=== PATIENT | male | born 1995 | race Two or more races ===

== ENCOUNTER 2017-08-09 06:06 | Emergency (ER) | payer BC ==
[~2017-08-09] VITALS: Ht 180.3 cm; Wt 79.4 kg
[~2017-08-09 06:06] MED LIST: METH18TA5
[2017-08-09 07:29] VITALS: BP 144/92
[2017-08-09 08:15] LABS: Basophils # (auto) 0.1 uL; Basophils % (auto) 1.2 % (0.0-2.0); Eosinophils # (auto) 0.3 uL; Eosinophils % (auto) 4.7 % (0.0-7.0); Hematocrit 47.7 % (41.0-53.0); Hemoglobin 16.4 g/dL (13.5-17.5); Lymphocytes # (auto) 2.4 uL; Lymphocytes % (auto) 34.6 % (10.0-50.0); Mean Corpuscular Hemoglobin 31.2 pg (28.0-32.0); Mean Corpuscular Hgb Conc. 34.4 g/dL (32.0-36.0); Mean Corpuscular Volume 90.7 fL (80.0-100.0); Monocytes # (auto) 0.5 uL; Monocytes % (auto) 7.6 % (0.0-12.0); Neutrophils # (auto) 3.6 uL; Neutrophils % (auto) 51.9 % (37.0-80.0); Nucleated Red Blood Cells % 0.1 %; Platelet Count (auto) 202 10^3/uL (140-450); Red Blood Cells 5.26 10^6/uL (4.5-5.90); White Blood Cell 6.9 10^3/uL (4.4-10.8)
[2017-08-09] MEDS ORDERED: KETOROLAC TROMETH 60MG/2ML VIAL IM ONE (08:30)
[2017-08-09 08:48] LABS: Alanine Aminotransferase 28 U/L (16-61); Albumin 4.3 g/dL (3.4-5.0); Alkaline Phosphatase 83 U/L (45-117); Anion Gap 7 (5-15); Aspartate Aminotransferase 12 U/L (15-37); BUN/Creatinine Ratio 11.5; Bilirubin, Total 0.4 mg/dL (0.2-1.0); Blood Urea Nitrogen 11 mg/dL (7-18); Calcium 9.1 mg/dL (8.5-10.1); Carbon Dioxide 28 mmol/L (21-32); Chloride 104 mmol/L (98-107); GFR African American 124 mL/min; GFR Non-African American 102 mL/min; Glucose 101 mg/dL (74-106); Magnesium 2.5 mg/dL (1.6-2.6); Potassium 4.8 mmol/L (3.5-5.1); Sodium 139 mmol/L (136-145); Total Protein 7.9 g/dL (6.4-8.2)
== END 2017-08-09 09:15 | disposition home or self-care (01) ==
LOC: ER 06:06
DX: R07.89 Other chest pain (principal); Z79.899 Other long term (current) drug therapy
CPT/HCPCS: 36415; 71045; 80053; 83735; 84443; 84484; 85025; 93005; 96372; 99285; J1885

== ENCOUNTER 2021-09-25 17:47 | Emergency (ER) | payer BC ==
[~2021-09-25] VITALS: Ht 177.8 cm; Wt 86.2 kg
[2021-09-25 17:57] VITALS: BP 96/65
[2021-09-25] MEDS ORDERED: ACETAMINOPHEN 500 MG TAB PO ONE (18:15)
[2021-09-25 19:24] LABS: Lymphocytes # (auto) 0.4 10 ^3/uL (0.4-5.4); Mean Corpuscular Volume 90.6 fL (80.0-100.0); Neutrophils # (auto) 10.8 10 ^3/uL (1.6-8.6)
[2021-09-25 19:31] LABS: Basophils # (auto) 0.1 10 ^3/uL (0-0.2); Basophils % (auto) 0.6 % (0.0-2.0); Eosinophils # (auto) 0.2 10 ^3/uL (0-0.8); Eosinophils % (auto) 1.2 % (0.0-7.0); Hemoglobin 15.2 g/dL (13.5-17.5); Lymphocytes % (auto) 3.7 % (10.0-50.0); Mean Corpuscular Hgb Conc. 33.1 g/dL (32.0-36.0); Monocytes # (auto) 0.6 10 ^3/uL (0-1.3); Monocytes % (auto) 5.2 % (0.0-12.0); Neutrophils % (auto) 89.3 % (37.0-80.0); Red Blood Cells 5.08 10^6/uL (4.5-5.90); Red Cell Distribution Width 12.1 % (11.8-14.3); White Blood Cell 12.1 10^3/uL (4.4-10.8)
[2021-09-25 19:46] LABS: Albumin 4.3 g/dL (3.4-5.0); Calcium 8.9 mg/dL (8.5-10.1); Potassium 4.1 mmol/L (3.5-5.1)
[2021-09-25 19:49] LABS: Bilirubin, Total 0.6 mg/dL (0.2-1.0); Total Protein 7.9 g/dL (6.4-8.2)
[2021-09-26] MEDS ORDERED: ALBUAER3 IN (00:14)
[2021-09-26] MEDS ORDERED: AZIT250T9 PO (00:14)
[2021-09-26] MEDS ORDERED: PRED20TA2 PO (00:14)
== END 2021-09-26 01:05 | disposition home or self-care (01) ==
LOC: ER 17:47
DX: J20.9 Acute bronchitis, unspecified (principal); Z20.822 Contact with and (suspected) exposure to COVID-19
CPT/HCPCS: 36415; 71045; 80053; 83605; 84484; 85025; 87040

== ENCOUNTER 2022-05-26 10:04 | Emergency (ER) | payer BC ==
[~2022-05-26] VITALS: Ht 177.8 cm; Wt 82.5 kg
[~2022-05-26 10:04] MED LIST changes: +ALBUAER3 IN; +AZIT250T9 PO; +PRED20TA2 PO
[2022-05-26 11:00] VITALS: BP 116/72
[2022-05-26] MEDS ORDERED: HYDR-4798 PO (11:46)
[2022-05-26] MEDS ORDERED: IBUP800T26 PO (11:49)
== END 2022-05-26 11:49 | disposition home or self-care (01) ==
LOC: ER 10:04
DX: S82.61XA Displaced fracture of lateral malleolus of right fibula, initial encounter for closed fracture (principal); Z79.899 Other long term (current) drug therapy; X58.XXXA Exposure to other specified factors, initial encounter; Y93.89 Activity, other specified; Y92.89 Other specified places as the place of occurrence of the external cause; Y99.8 Other external cause status
CPT/HCPCS: 29515; 73610